=== PATIENT | female | born 1960 | race Caucasian/White ===

== ENCOUNTER 2023-12-22 10:01 | Emergency (ER) | payer OTHER, SELFPAY ==
--- NOTE | 2023-12-22 10:34 | ED.GENMED ---
History of Present Illness
<Aurea Richards PA-C - Last Filed: 12/22/23 17:49>
General
Chief Complaint: Fall
Source: patient
Exam Limitations: none
Time Seen by Provider: 12/22/23 10:34
Nursing documentation reviewed up to this point in time: agreed with
History of Present Illness
History of Present Illness:
This is a 63 y/o female with a pmh of hypothyroidism, cervical osteoarthritis presenting to the emergency department today with concerns of a swollen right eyelid. Patient states that she was walking out to her car today when she slipped and fell
forward hitting her head onto the car and she did fall back at this point. Patient states that she subsequently started to feel a lot of pain in her right eye as well as neck pain. Patient denies any upper extremity paresthesias or weakness.
Patient states that she does have chronic neck pain but this pain is different and happened immediately after the injury. Patient denies any loss of consciousness, dizziness, vomiting, nausea. She states that she feels tired. Patient denies any pain
in her upper or lower extremities. Patient is able to get up on her own and walk okay after the injury. Patient denies chest pain or shortness of breath. She does not use any blood thinners.
Review of Systems
<Aurea Richards PA-C - Last Filed: 12/22/23 17:49>
Review of Systems
All Other Systems: ROS reviewed and negative except as documented in HPI and ROS
Phy Exam
<Aurea Richards PA-C - Last Filed: 12/22/23 17:49>
Physical Exam
Physical Exam:
General: Patient is well appearing and in no acute distress; non-toxic
Skin: Warm and dry, no rashes or lesions
Head: Normocephalic, atraumatic
Eyes: Sclera non-icteric. EOMs intact bilaterally. No proptosis. There is right eyelid swelling and ecchymosis.
Neck: Patient seen spontaneously moving cervical spine. No tenderness to palpation of the cervical spine.
Cardiac: Regular rate and rhythm. No tenderness to palpation of the external chest wall.
Peripheral Vascular: No lower extremity swelling or edema.
Pulm: Normal respiratory effort
Musculoskeletal: 5/5 strength in bilateral upper and lower extremity. Full range of motion of bilateral upper and lower extremities.
Neuro: CN II-XII intact, no focal neurologic deficits.
Psychiatric: Appropriate mood and affect.
Course
<Aurea Richards PA-C - Last Filed: 12/22/23 17:49>
Orders/Labs/Results
Orders:
Orders
12/22/23 10:45
CT Cervical Spine W/o Iv Contr Urgent
Reason For Exam: neck pain following trauma
CT Facial Bones W/o Iv Contras Urgent
Comment:
Reason For Exam: right zygomatic pain following trauma
CT Head W/o Iv Contrast Urgent
Comment:
Reason For Exam: headache following blunt trauma
Vital Signs
Initial and Last Documented VS:
Initial Vital Signs
Temp Resp Pulse Ox
98.1 F 16 98
12/22/23 10:06 12/22/23 10:06 12/22/23 10:06
Last Documented Vital Signs
Temp Resp BP Pulse Ox
98.1 F 16 138/82 98
12/22/23 10:06 12/22/23 10:06 12/22/23 12:07 12/22/23 10:06
<Gustabo Romero DO - Last Filed: 12/22/23 10:57>
Orders/Labs/Results
Orders:
Orders
12/22/23 10:45
CT Cervical Spine W/o Iv Contr Urgent
Reason For Exam: neck pain following trauma
CT Facial Bones W/o Iv Contras Urgent
Comment:
Reason For Exam: right zygomatic pain following trauma
CT Head W/o Iv Contrast Urgent
Comment:
Reason For Exam: headache following blunt trauma
Vital Signs
Initial and Last Documented VS:
Initial Vital Signs
Temp Resp Pulse Ox
98.1 F 16 98
12/22/23 10:06 12/22/23 10:06 12/22/23 10:06
Last Documented Vital Signs
Temp Resp BP Pulse Ox
98.1 F 16 138/82 98
12/22/23 10:06 12/22/23 10:06 12/22/23 12:07 12/22/23 10:06
<Aurea Richards PA-C - Last Filed: 12/22/23 17:49>
MDM/Problems Addressed
Differential Diagnosis Includes:
ddx include orbital fracture, zygomatic fracture, concussion, cervical muscle strain
MDM/Problems Addressed:
Head trauma:
This is a 63 y/o female with a pmh of hypothyroidism, cervical osteoarthritis presenting to the emergency department today with concerns of a swollen right eyelid. Patient states that she was walking out to her car today when she slipped and fell
forward hitting her head onto the car and she did fall back at this point. Patient states that she subsequently started to feel a lot of pain in her right eye as well as neck pain. On physical exam, she is well-appearing, she does have a swollen
and ecchymotic right upper eyelid but her eyeball itself is intact there is no proptosis, her pupils are reactive, and her EOMs are intact. Patient has unremarkable neurologic exam. Her head CT along with her CT of the facial bones and cervical
spine was negative for any acute fracture or any intracranial bleeding. Patient stable for discharge.
Chronic conditions affecting care:
hypothyroidism, chronic neck pain on gabapentin
<Aurea Richards PA-C - Last Filed: 12/22/23 17:49>
*Pulse Oximetry
Patient hypoxic: no
*Critical Care Note
Total Time (30-74mins, 75-104mins- exclusive of procedures): Not Applicable
Data Reviewed
Review of Other/Old Records Reveals: Records (no previous ER physician documentation to review ) and Discharge Summary (no hospital discharge summary in [facility] to review )
Source: patient and records
<Aurea Richards PA-C - Last Filed: 12/22/23 17:49>
Patient Management
Escalation/DeEscalation of care consider admission/obs:
Patient stable for discharge, case reviewed with my attending Dr. Romero.
ED Attending Note
<Aurea Richards PA-C - Last Filed: 12/22/23 17:49>
-
Portions of this chart may have been created with voice recognition software.� Occasional wrong word or��sound alike� substitutions may have occurred due to the inherent limitations of voice recognition software.
<Gustabo Romero DO - Last Filed: 12/22/23 10:57>
ED Attending Note
Patient seen and examined by attending physician: Yes
I performed the substantive portion of visit, reviewed & personally made and approve the management plan that is documented in note by myself or JASS.: Yes
I performed a history and physical exam of patient and discussed management with resident, I reviewed resident's note and agree with documented findings and plan of care.: Yes
ED Attending Note:
I evaluated the patient at bedside. The patient has significant periorbital edema and ecchymosis and frontal bone and zygomatic arch tenderness�CT imaging obtained.
Discharge Plan
Departure
Patient Disposition: Home (Routine Discharge)
Date of Disposition: 12/22/23
Time of Disposition: 11:59
Patient with high blood pressure during this ER visit?: Yes
Condition: Good
Discharge Problem:
Hematoma of right upper eyelid, Fall
Instructions: Head injury in adults, [facility]
Referrals:
Lauro Tyler DO [Family Provider] -
Activity Restrictions/Additional Instructions:
Please stay well rested. Please place the area, this will help with swelling. You can alternate Tylenol and Motrin for pain.
Please follow-up with your primary care provider.
Please return to the emergency department should you experience dizziness, lightheadedness, loss of consciousness, visual changes, chest pain, shortness of breath, any other signs or symptoms concerning to you.
Interventions
Interventions:
*Risk Screen - Suicide Last Done: 12/22/23 10:54
*General Assessment Last Done: 12/22/23 10:54
*Neglect/Abuse Screening Last Done: 12/22/23 10:54
ED- Fall Risk Assessment Last Done: 12/22/23 12:07
*ED COVID-19 Vaccine History Last Done: 12/22/23 10:54
*Nursing Disposition Last Done: 12/22/23 12:07
ED-Musculoskeletal Assessment Last Done: 12/22/23 10:54
ED- Neurological Assessment Last Done: 12/22/23 10:54
ED-Skin Assessment Last Done: 12/22/23 10:54
Discharge Date and Time
Discharge Date/Time: 12/22/23 12:08
Print Language: ARABIC
[2023-12-22 10:53] VITALS: BMI 36.1
[2023-12-22 10:55] VITALS: BP 149/83
[2023-12-22 12:07] VITALS: BP 138/82
== END 2023-12-22 12:08 | disposition home or self-care (01) ==
LOC: EMR 10:01
PROVIDERS: EMERGENCY PHYSICIAN Emergency Medicine; FAMILY PHYSICIAN Family Medicine
DX: S00.11XA Contusion of right eyelid and periocular area, initial encounter (principal); W01.0XXA Fall on same level from slipping, tripping and stumbling without subsequent striking against object, initial encounter; Y93.01 Activity, walking, marching and hiking; E03.9 Hypothyroidism, unspecified; M47.892 Other spondylosis, cervical region
CPT/HCPCS: 99284; 70450; 70486; 72125